=== PATIENT | female | born 1950 | race Caucasian/White ===

== ENCOUNTER 2018-01-07 12:49 | Outpatient (CLI) | payer OTHER | END 2018-01-07 20:30 | disposition home or self-care (01) | LOC: SMA 12:49 | PROVIDERS: ATTEND Internal Medicine | DX: Z12.31 Encounter for screening mammogram for malignant neoplasm of breast (principal) | CPT/HCPCS: 77067 ==

== ENCOUNTER 2019-02-09 07:53 | Outpatient (CLI) | payer OTHER | END 2019-02-09 20:34 | disposition home or self-care (01) | LOC: SMA 07:53 | PROVIDERS: ATTEND Internal Medicine | DX: Z12.31 Encounter for screening mammogram for malignant neoplasm of breast (principal) | CPT/HCPCS: 77067 ==

== ENCOUNTER 2020-09-11 08:51 | Outpatient (CLI) | payer OTHER | END 2020-09-11 20:23 | disposition home or self-care (01) | LOC: SMA 08:51 | DX: Z12.31 Encounter for screening mammogram for malignant neoplasm of breast (principal) | CPT/HCPCS: 77067 ==